=== PATIENT | male | born 1940 | race Caucasian/White ===

== ENCOUNTER 2018-10-06 18:46 | Emergency (ER) | payer MEDICARE ==
[2018-10-06 19:15] LABS: #Lymphocytes 1.3 thou/uL (1.20-3.40); %Basophils 0.3 % (0.0-1.0); %Eosinophils 0.3 % (0.0-10.0); %Lymphocytes 8.8 % (21.0-51.0); %Monocytes 7.1 % (0.0-10.0); %Neutrophils 83.4 % (42.0-75.0); Hemoglobin 13.2 g/dL (14.0-18.0); Mean Corpuscular Hemoglobin 25.8 pg (27.0-31.0); Mean Corpuscular Volume 83.3 fL (78.0-98.0); Platelet Count 274 thou/uL (130-400); RBC Distribution Width 13.7 % (11.5-14.5); Red Blood Cell (RBC) Count 5.13 mill/uL (4.70-6.10); White Blood Cell (WBC) Count 14.3 thou/uL (4.8-10.8)
--- NOTE | 2018-10-06 19:25 | RAD ---
CHEST TWO VIEWS: 10/06/18 HISTORY: Chest pressure since 3 a.m. this morning, radiating to the left jaw. COMPARISON: 09/30/17. FINDINGS: borderline hyperinflation. Mild increased markings noted bilaterally particularly in the bases withou t confluent pneumonia or overt edema or pleural effusion. Evidence for hiatal hernia. Biapical pleura l thickening. IMPRESSION: Stable chronic changes. Evidence for a hiatal hernia. No significant new process. POS: [facility]
[2018-10-06 19:30] LABS: ALT (SGPT) 18 U/L (8-55); AST (SGOT) 19 U/L (5-34); Albumin 4.1 g/dL (3.4-4.8); Alkaline Phosphatase 111 U/L (40-150); Anion Gap 14 mmol/L (10-20); BUN (Urea Nitrogen) 18 mg/dL (8.4-25.7); Bilirubin, Total 1.8 mg/dL (0.2-1.2); Calc. Creatinine Clearance 0 mL/min (70-130); Calcium 9.4 mg/dL (7.8-10.44); Carbon Dioxide 28 mmol/L (23-31); Chloride 99 mmol/L (98-107); Estimated GFR-MDRD 76; Globulin 3.1 g/dL (2.4-3.5); Glucose 122 mg/dL (83-110); Potassium 3.4 mmol/L (3.5-5.1); Protein, Total 7.2 g/dL (5.8-8.1); Sodium 138 mmol/L (136-145)
== END 2018-10-06 21:00 | disposition short-term general hospital (02) ==
LOC: NAV ERS 18:46
DX: R07.89 Other chest pain (principal); I10 Essential (primary) hypertension; Z87.891 Personal history of nicotine dependence; Z79.899 Other long term (current) drug therapy; Z79.82 Long term (current) use of aspirin
CPT/HCPCS: 71046; 80053; 83880; 84484; 85025; 93005

== ENCOUNTER 2022-09-20 12:57 | Emergency (ER) | payer MEDICARE ==
[~2022-09-20 12:57] MED LIST: Iopamidol 370 76% 100 ML VIAL ONE
[2022-09-20] MEDS ORDERED: Furosemide 40 MG/4 ML VIAL ONE (14:09)
[2022-09-20 14:28] LABS: Hemoglobin 10.3 g/dL (14.0-18.0); Mean Corpuscular HGB CONC 29.5 g/dL (32.0-36.0); Mean Corpuscular Hemoglobin 21.8 pg (27.0-31.0); Mean Corpuscular Volume 73.8 fl (78.0-98.0); Platelet Count 257 10x3/uL (130-400); RBC Distribution Width 16.2 % (11.5-14.5); Red Blood Cell (RBC) Count 4.72 mill/uL (4.70-6.10); White Blood Cell (WBC) Count 7.9 10x3/uL (4.8-10.8)
[2022-09-20 14:38] LABS: MDiff Complete? YES; Manual Diff?? YES
[2022-09-20 14:40] LABS: ALT (SGPT) 66 U/L (8-55); AST (SGOT) 74 U/L (5-34); Albumin 3.8 g/dL (3.4-4.8); Alcohol Less than 10 mg/dL (Less than 10); Alkaline Phosphatase 134 U/L (40-110); Anion Gap 14 mmol/L (10-20); BUN (Urea Nitrogen) 13 mg/dL (8.4-25.7); Calc. Creatinine Clearance 0 mL/min (70-130); Calcium 8.9 mg/dL (7.8-10.44); Carbon Dioxide 28 mmol/L (23-31); Chloride 99 mmol/L (98-107); Estimated GFR 89; Globulin 3.6 g/dL (2.4-3.5); Glucose 118 mg/dL (83-110); Potassium 3.1 mmol/L (3.5-5.1); Protein, Total 7.4 g/dL (5.8-8.1); Sodium 138 mmol/L (136-145)
[2022-09-20 14:42] LABS: Band 3 % (5-11); Eosinophils 1 % (0-10); Lymphocytes 2 % (21-51); Monocytes 5 % (0-10); Neutrophil 88 % (42-75); Platelet Morphology Comment Appears Adequate; Reactive Lymphocytes 1 % (0-10)
[2022-09-20 14:43] LABS: Anisocytosis SLIGHT = 6-15 cells (100X) (0-5/hpf); Hypochromia SLIGHT = 6-15 cells (100X) (0-5/hpf); Macrocytosis SLIGHT = 6-15 cells (100X) (0-5/hpf); Microcytosis SLIGHT = 6-15 cells (100X) (0-5/hpf); Stomatocytes SLIGHT = 2-5 cells (100X) (0-1/hpf)
[2022-09-20] MEDS ORDERED: Acetaminophen 500 MG TAB ONE (15:11)
[2022-09-20 16:18] LABS: SARS-CoV-2 NAA Rapid Test Not Detected (NotDetected)
== END 2022-09-20 17:34 | disposition left against medical advice (07) ==
LOC: NAV ERS 12:57
DX: J10.1 Influenza due to other identified influenza virus with other respiratory manifestations (principal); I48.91 Unspecified atrial fibrillation; I11.0 Hypertensive heart disease with heart failure; I50.9 Heart failure, unspecified; E78.00 Pure hypercholesterolemia, unspecified; Z20.822 Contact with and (suspected) exposure to COVID-19; Z87.891 Personal history of nicotine dependence; Z79.82 Long term (current) use of aspirin; Z79.899 Other long term (current) drug therapy
CPT/HCPCS: 71045; 71275; 80053; 80307; 82140; 83605; 83880; 84484; 85025; 85379; 87804 ×2; 93005; 99284; U0002; J1940; Q9967